=== PATIENT | female | born 1965 | race Two or more races ===

== ENCOUNTER 2022-06-14 05:50 | Day surgery (SDC) | payer OTHER | END 2022-06-14 10:10 | disposition home or self-care (01) | LOC: AMB-ENDOS 05:50 | PROVIDERS: ATTEND Colon & Rectal Surgery | DX: D12.3 Benign neoplasm of transverse colon (principal); Z20.822 Contact with and (suspected) exposure to COVID-19; Z86.010 Personal history of colon polyps; K64.1 Second degree hemorrhoids; I10 Essential (primary) hypertension ==